=== PATIENT | female | born 1965 | race Caucasian/White ===

== ENCOUNTER 2023-12-28 22:56 | Emergency (ER) | payer OTHER, SELFPAY ==
[2023-12-28 22:57] VITALS: BP 128/82
--- NOTE | 2023-12-28 23:18 | ED.GENMED ---
History of Present Illness
General
Chief Complaint: Head Injury
Source: patient
Exam Limitations: none
Time Seen by Provider: 12/28/23 23:06
Nursing documentation reviewed up to this point in time: agreed with
History of Present Illness
History of Present Illness:
Patient presents to ED while vacationing last night. Patient states that she was walking fast when she slipped on a wet floor, and fell backwards, hitting her head against hard, concrete floor. Denies loss of consciousness. Denies neck pain.
Denies blurred vision. Denies dizziness. Denies nausea or vomiting. Denies loss of sensation or weakness. Denies difficulty in ambulation. Patient does not take any blood thinning medications. Patient came back home today and wanted to make
sure that she did not have any 'bleeding' in her head.
Past History
Past History
ED Past Medical History: Other (Ulcers, Migraines)
ED Past Surgical History: None
Social History
Tobacco: Non-smoker
Alcohol: None
Personal:
Living: with family
Review of Systems
Review of Systems
Allergies reviewed?: Yes
All Other Systems: ROS reviewed and negative except as documented in HPI and ROS
Constitutional: Reports no symptoms; Denies fever
ABD/GI: Reports no symptoms; Denies nausea or vomiting
Musculoskeletal: Reports no symptoms
Skin: Reports no symptoms
Neurological: Reports headache; Denies dizzy, weakness or numbness
Phy Exam
Physical Exam
Physical Exam:
Physical Exam
General: no apparent distress, not acutely ill. afebrile
Head: nc/at. eomi
Neck: supple. normal range of motion. no midline tenderness.
Abdomen: normal bowel sounds. not tender.
Neuro: alert and oriented. no focal neurological deficits
Skin: no rash
Psychiatric: well kept. interactive and cooperative
Extremities: no edema. no calf tenderness.
Course
Orders/Labs/Results
Orders:
Orders
12/28/23 23:14
CT Head W/o Iv Contrast Urgent
Comment:
Reason For Exam: trauma to back of head
Vital Signs
Initial and Last Documented VS:
Initial Vital Signs
Temp Pulse Resp BP Pulse Ox
98.3 F 68 18 128/82 99
12/28/23 22:57 12/28/23 22:57 12/28/23 22:57 12/28/23 22:57 12/28/23 22:57
Last Documented Vital Signs
Temp Pulse Resp BP Pulse Ox
98.3 F 68 18 128/82 99
12/28/23 22:57 12/28/23 22:57 12/28/23 22:57 12/28/23 22:57 12/28/23 22:57
MDM/Problems Addressed
MDM/Problems Addressed:
CT head: No acute findings.
Pt otherwise is afebrile, hemodynamically stable, and neurologically intact at time of discharge.
*Critical Care Note
Total Time (30-74mins, 75-104mins- exclusive of procedures): Not Applicable
ED Attending Note
-
Portions of this chart may have been created with voice recognition software.� Occasional wrong word or��sound alike� substitutions may have occurred due to the inherent limitations of voice recognition software.
Discharge Plan
Departure
Patient Disposition: Home (Routine Discharge)
Date of Disposition: 12/29/23
Time of Disposition: 00:15
Patient with high blood pressure during this ER visit?: Yes
Condition: Good
Discharge Problem:
Head injury
Instructions: Head Injury in Adults (DC)
Prescriptions:
No Action
cholecalciferol (vitamin D3) 10,000 UNIT capsule
10,000 unit PO DAILY
Fiber Pill
1 tab PO PRN
Imitrex:
2 tab PO PRN
L Carnosine
100 mg PO DAILY
Milk Thistle
1 tab PO DAILY
pantoprazole [Protonix] 40 mg tablet,delayed release (DR/EC)
40 mg PO DAILY Qty: 14 0RF
Referrals:
Vitor Freeman MD [Family Provider] -
Activity Restrictions/Additional Instructions:
As discussed, please follow-up with your primary care physician for any further concerns. In ED, CT scan did not reveal any acute abnormalities.
Interventions
Interventions:
*Risk Screen - Suicide Last Done: 12/28/23 22:57
*General Assessment Last Done: 12/28/23 22:57
*Neglect/Abuse Screening Last Done: 12/28/23 22:57
ED- Neurological Assessment Last Done: 12/28/23 23:30
ED-Skin Assessment Last Done: 12/28/23 23:30
Discharge Date and Time
Print Language: NIGERIAN
[2023-12-29 00:20] VITALS: BP 126/64
== END 2023-12-29 00:21 | disposition home or self-care (01) ==
LOC: EMR 22:56
PROVIDERS: EMERGENCY PHYSICIAN Emergency Medicine; FAMILY PHYSICIAN Internal Medicine
DX: S09.90XA Unspecified injury of head, initial encounter (principal); W01.0XXA Fall on same level from slipping, tripping and stumbling without subsequent striking against object, initial encounter; R03.0 Elevated blood-pressure reading, without diagnosis of hypertension
CPT/HCPCS: 99284; 70450

== ENCOUNTER → 2024-05-19 09:17 | Outpatient (REF) | payer OTHER, SELFPAY | LOC: DHSLP 09:17 | PROVIDERS: ATTENDING PHYSICIAN Internal Medicine Critical Care Medicine; FAMILY PHYSICIAN Internal Medicine | DX: G47.30 Sleep apnea, unspecified (principal); R06.83 Snoring | CPT/HCPCS: 95800 ==